=== PATIENT | male | born 1990 | race Caucasian/White ===

== ENCOUNTER 2024-12-17 22:48 | Emergency (ER) | payer MEDICAID, SELFPAY ==
[2024-12-17] MEDS ORDERED: cefTRIAXone (ROCEPHIN) 500 MG VIAL ONE (23:21)
[2024-12-17] MEDS ORDERED: Lidocaine 1% (PF) 30 ML VIAL ONE (23:21)
[2024-12-19 06:12] LABS: Chlam.trachomatis by PCR,Urine DETECTED (NotDetected); GC N.gonorrhoeae PCR,UrineVOID DETECTED (NotDetected)
== END 2024-12-17 23:40 | disposition home or self-care (01) ==
LOC: NAV ERS 22:48
DX: A64 Unspecified sexually transmitted disease (principal); H10.9 Unspecified conjunctivitis
CPT/HCPCS: 87491; 87591; 96372; 99283; J0696